=== PATIENT | male | born 1950 | race Caucasian/White ===

== ENCOUNTER → 2017-07-23 | Outpatient (CLI) | payer OTHER, MEDICARE | LOC: BMCIMAGING 15:45 | PROVIDERS: ATTEND Podiatrist Foot & Ankle Surgery | DX: M19.072 Primary osteoarthritis, left ankle and foot (principal) ==

== ENCOUNTER → 2018-01-04 | Outpatient (CLI) | payer OTHER, MEDICARE | LOC: BMCIMAGING 15:14 | PROVIDERS: ATTEND Physician Assistant | DX: Z47.1 Aftercare following joint replacement surgery (principal); Z96.651 Presence of right artificial knee joint ==

== ENCOUNTER 2018-03-21 10:15 | Inpatient (IN) | payer OTHER, MEDICARE ==
--- NOTE | 2018-03-21 06:41 | PDHPUP ---
History & Physical Update H&P update statement: This history and physical update is based on an assessment of the patient which was completed after admission or registration (within 24 hours), but prior to the surgery/procedure. H&P update: no change in patient's condition since H&P completed
--- NOTE | 2018-03-21 06:41 | PDIAF ---
- Diagnosis Diagnosis: failed right tka Code Status: Full Code - Medication Management Discharge Medications: Medications to Continue on Transfer Cholestyramine (with Sugar) [Cholestyramine Packet] 2 gm PO BID 10/21/12 [Last Taken 10/20/12 14:30] Discharge Medications: Refer to the Discharge Home Medication list for PRN reason. - Orders Services needed: Physical Therapy Diet Recommendation: no restrictions on diet Activity/Weight Bearing Restrictions: wbat. rom as khalif. keep dressing intact. oneida hose x 2 weeks. f/u at two weeks, seek attn for increasing pain, redness , swelling discharge - Follow Up Care Current Providers and Referrals: Clemente Pritchard MD [Primary Care Provider] -
[~2018-03-21 10:15] MED LIST: BUPI/epINEPH/KETOROLAC/morphINE IU ONE; CALCIUM CHLORIDE 1 GM/10 ML INJ ONE; ROPIVACAINE 0.2% 80 MG, EPINEPHrine 0.2 MG, KETOROLAC TROMETHAMINE 30 MG, morphINE 10 M... IU ONE; THROMBIN (BOVINE) 5,000 UNIT VIAL TP ONE; TRANEXAMIC ACID 1,000 MG in NS (SYRINGE) 50 ML IV ONE; TRANEXAMIC ACID 3,000 MG/50 ML BAG IRR ONE; ceFAZolin 1 GM/5 ML SYR ONE
[2018-03-21] MEDS ORDERED: FAMOTIDINE 20 MG TAB PO ONE (11:55)
[2018-03-21] MEDS ORDERED: ACETAMINOPHEN 325 MG TAB PO ONE (11:55)
[2018-03-21] MEDS ORDERED: ceFAZolin 2 GM/SWFI 2 GM/20 ML SYR IVP ONE (11:55)
[2018-03-21] MEDS ORDERED: LIDOCAINE 1% 2 ML INJ ID PRN (11:56)
[2018-03-21] MEDS ORDERED: LR 1,000 ML IV ONE (11:56)
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
[2018-03-21] MEDS ORDERED: MIDAZOLAM 2 MG/2 ML VIAL IVP ONE (14:06)
[2018-03-21] MEDS ORDERED: MIDAZOLAM 2 MG/2 ML VIAL ONE (14:08)
[2018-03-21] MEDS ORDERED: fentaNYL 100 MCG/2 ML INJ ONE ×3 (14:09→18:01)
[2018-03-21] MEDS ORDERED: PROPOFOL 200 MG/20 ML VIAL ONE (14:10)
[2018-03-21] MEDS ORDERED: ROPIVACAINE HCL 150 MG/30 ML INJ ONE (14:56)
[2018-03-21] MEDS ORDERED: PHENYLEPHRINE 10 MG/ML SDV ONE (15:00)
[2018-03-21] MEDS ORDERED: clonIDINE 1 MG/10 ML VIAL EP ONE (15:49)
[2018-03-21] MEDS ORDERED: ONDANSETRON 4 MG/2 ML VIAL ONE ×2 (16:51)
[2018-03-21] MEDS ORDERED: HYDROmorphone HCL/NS 0.5 MG/ML SYR IVP PRN (17:05)
[2018-03-21] MEDS ORDERED: ONDANSETRON 4 MG/2 ML VIAL IVP PRN ×2 (17:05→18:33)
[2018-03-21] MEDS ORDERED: fentaNYL 100 MCG/2 ML INJ IVP PRN (17:05)
[2018-03-21] MEDS ORDERED: NALOXONE HCL 0.4 MG/ML INJ IVP PRN (17:05)
--- NOTE | 2018-03-21 17:53 | POSTANESTH ---
Post Anesthetic Evaluation Cardiovascular Status: Normal, Stable Respiratory Status: Normal, Stable Level of Consciousness/Mental Status: Can Participate in Eval Pain Control: Adequate, Prn Tx Ordered Nausea/Vomiting Control: Adequate, Prn Tx Ordered Complications Possibly Related to Anesthesia: None Noted
[2018-03-21] MEDS ORDERED: PROMETHAZINE HCL 25 MG SUPPR PR PRN (18:33)
[2018-03-21] MEDS ORDERED: MAGNESIUM HYDROXIDE 30 ML UDCUP PO PRN (18:33)
[2018-03-21] MEDS ORDERED: POLYETHYLENE GLYCOL 3350 17 GM PKT PO PRN (18:33)
[2018-03-21] MEDS ORDERED: BISACODYL 10 MG SUPP PR PRN (18:33)
[2018-03-21] MEDS ORDERED: CYCLOBENZAPRINE 10 MG TAB PO PRN (18:33)
[2018-03-21] MEDS ORDERED: diphenhydrAMINE 25 MG CAP PO PRN (18:33)
[2018-03-21] MEDS ORDERED: LACTULOSE 20 GM/30 ML UDCUP PO PRN (18:33)
[2018-03-21] MEDS ORDERED: DIAZEPAM 5 MG TAB PO PRN (18:33)
[2018-03-21] MEDS ORDERED: DIPHENOXYLATE/ATROPINE LOMOTIL 1 TAB PO PRN (18:33)
[2018-03-21] MEDS ORDERED: PROMETHAZINE HCL 25 MG/ML INJ IVP PRN (18:33)
[2018-03-21] MEDS ORDERED: ONDANSETRON DISINTEGRATING 4 MG TAB PO PRN (18:33)
[2018-03-21] MEDS ORDERED: METOCLOPRAMIDE 10 MG/2 ML VIAL IVP PRN (18:33)
[2018-03-21] MEDS ORDERED: TEMAZEPAM 15 MG CAP PO PRN (18:33)
[2018-03-21] MEDS ORDERED: traMADol 50 MG TAB PO PRN (18:33)
[2018-03-21] MEDS ORDERED: LR 1,000 ML IV SCH (19:00)
[2018-03-21] MEDS: TRANEXAMIC ACID 650 MG TAB PO SCH (19:33)
[2018-03-21] MEDS: oxyCODONE IR 5 MG TAB PO PRN ×2 (19:39→23:36)
[2018-03-21] MEDS: ceFAZolin 2 GM/SWFI 2 GM/20 ML SYR IVP SCH (21:15)
[2018-03-21] MEDS: FAMOTIDINE 20 MG TAB PO SCH (21:16)
[2018-03-21] MEDS: CHOLESTYRAMINE/SUCROSE 4 GM PKT PO SCH (21:16)
[2018-03-21] MEDS: ENOXAPARIN 30 MG/0.3 ML SYR SC SCH (21:16)
[2018-03-21] MEDS: SENNOSIDES/DOCUSATE SODIUM TAB PO SCH (21:17)
[2018-03-21] MEDS ORDERED: ceFAZolin 2 GM/DEXTROSE 100 ML IV SCH (22:00)
[2018-03-21] MEDS: ACETAMINOPHEN 325 MG TAB PO SCH (23:36)
[2018-03-22] MEDS: TRANEXAMIC ACID 650 MG TAB PO SCH (02:46)
[2018-03-22] MEDS: ACETAMINOPHEN 325 MG TAB PO SCH (04:59)
[2018-03-22] MEDS: ceFAZolin 2 GM/SWFI 2 GM/20 ML SYR IVP SCH (05:00)
--- NOTE | 2018-03-22 07:03 | PDMN ---
Medical Necessity Medical necessity: IP surgery per [facility] cpt 43263 revision R TKA
[2018-03-22] MEDS: CHOLESTYRAMINE/SUCROSE 4 GM PKT PO SCH (07:04)
--- NOTE | 2018-03-22 07:36 | PDIAF ---
- Diagnosis Diagnosis: failed right tka Code Status: Full Code - Medication Management Discharge Medications: Medications to Continue on Transfer Cholestyramine (with Sugar) [Cholestyramine Packet] 2 gm PO BID 10/21/12 [Last Taken 03/20/18 18:30] Enoxaparin [Lovenox] 30 mg SC BID #14 syr 03/22/18 [Last Taken Unknown] oxyCODONE IR [Oxycodone Ir (*)] 5 - 10 mg PO Q3HRS PRN #45 tab 03/22/18 [Last Taken Unknown] Discharge Medications: Refer to the Discharge Home Medication list for PRN reason. - Orders Services needed: Physical Therapy Diet Recommendation: no restrictions on diet Diet Texture: Regular Texture Diet Activity/Weight Bearing Restrictions: wbat. rom as khalif. keep dressing intact. maria luisa hose x 2 weeks. f/u at two weeks, seek attn for increasing pain, redness , swelling discharge Additional Instructions: TOTAL JOINT ARTHROPLASTY DISCHARGE INSTRUCTIONS 1. Your surgeon follows the [facility] protocol for reducing your risk of DVT (blood clots) following surgery. Medication will be ordered to prevent blood clots. A sudden increase in calf pain and/or swelling could indicate a blood clot in your leg. If this occurs, please call your surgeon or his/her legal administrative assistant. An ultrasound of the leg may be necessary to diagnose a blood clot. If you have conditions that make you a higher risk for blood clots, your surgeon may use more aggressive ways to prevent them. Notify your surgeon if you think you are a high risk for blood clots. 2. Wear your white surgical stockings (MARIA LUISA hose) for 2 weeks. This decreases your swelling and may help prevent blood clots. It is ok to remove MARIA LUISA hose at night time to give your legs a break. 3. Swelling and bruising in the surgical leg is common. If you feel that it is excessive, please notify your surgeon. 4. Elevate your surgical leg with the ankle above the hip several times every day. Please keep the leg straight when you elevate by putting pillows under your foot. Do not put pillows under your knee. This will make being able to fully straighten more difficult. This is uncomfortable, but try to do it as much as possible. 5. For total knee replacements use compressive wrap on your knee for 3-5 days after surgery, then you can discontinue it. 6. Use a walker or crutches for 1-2 weeks. Progress your weight-bearing as tolerated. You may start to use a cane when you feel stable and safe. 7. You will receive physical therapy instructions in the hospital. Continue those exercises at home. There are additional exercises in the total joint booklet you were given before surgery. Outpatient physical therapy will begin 7- 10 days after surgery. Please schedule this in advance. 8. Use ice on your knee at least 3-5 times every day for 30 minutes. This helps reduce pain and swelling. Also use it at night before falling asleep. 9. Leave your surgical dressing in place for 2 weeks. Your dressing is water resistant, but not waterproof. Cover it with Saran Wrap or [id number]-[id number] before showering. You may shower as soon as you feel safe entering a shower. If you notice bleeding from your incision 2 or 3 days after surgery, please notify your surgeon. 10. Due to narcotics, decreased activity and altered diet, most patients experience constipation after surgery. Use [id number] stool softeners while you are on narcotics. 11. You may drive a car when you are comfortable bearing weight, have good muscular control of your leg and are off narcotics. This usually occurs 2-4 weeks after surgery, depending on which leg was operated on. 12. If there are questions not addressed here, please refer the [facility] book given for more information. If you still have questions, please contact your surgeon s office. 13. If you have a life-threatening emergency, please call 911 and go to the emergency room immediately. For non-life threatening emergencies, please call your physicians office for advice before going to the emergency room. - Follow Up Care Current Providers and Referrals: Jorge Mancera MD [Medical Doctor] - Clemente Pritchard MD [Primary Care Provider] -
--- NOTE | 2018-03-22 07:37 | SOAPPROG ---
SOAP Progress Note Assessment/Plan: Assessment: s/p revision right tka Plan:stable d/c home after cleared by pt dvt precautions f/u at two weeks 03/22/18 07:36 Subjective: doing well no co min pain no cp or sob khalif po Objective: Vital Signs Temp Pulse Resp BP Pulse Ox 36.8 C 76 17 111/75 95 03/22/18 03:06 03/22/18 03:06 03/22/18 03:06 03/22/18 03:06 03/22/18 03:06 Laboratory Results 03/22/18 04:48 03/21/18 03/22/18 03/23/18 05:59 05:59 05:59 Intake Total 2880 Output Total 325 Balance 2555 dressing intact intact pf,df,ehl toes warm and pink neg homans juwan xrays stable alignment, slight lateral overhand of tibial plate ICD10 Worksheet Patient Problems: Problems Problem Status Onset Failure of total knee arthroplasty Acute - ICD10 Problem Qualifiers (1) Failure of total knee arthroplasty
[2018-03-22 07:46] VITALS: BP 115/77
[2018-03-22] MEDS: SENNOSIDES/DOCUSATE SODIUM TAB PO SCH (09:19)
[2018-03-22] MEDS: ENOXAPARIN 30 MG/0.3 ML SYR SC SCH (09:19)
[2018-03-22] MEDS: FAMOTIDINE 20 MG TAB PO SCH (09:19)
[2018-03-22] MEDS: oxyCODONE IR 5 MG TAB PO PRN (09:22)
--- NOTE | 2018-03-22 12:02 | ASMTCMCOM ---
CM Note CM Note Notes: Pt medically stable for d/c with [facility]. Orders sent in [employer]. Pt address/phone verified. Date Signed: 03/22/2018 12:01 PM Electronically Signed By:JAD Power
--- NOTE | 2018-03-22 16:12 | ASDISCHSUM ---
Discharge Information Plan Status:Home with Home Health Medically Cleared to Leave: Discharge Date:03/22/2018 11:39 AM CM D/C Disposition:Home Health Service ADT D/C Disposition:Home Health Service Projected Discharge Date:03/22/2018 11:00 AM Transportation at D/C: Discharge Delay Reason: Follow-Up Date:03/22/2018 11:00 AM Discharge Slot: Final Diagnosis: Placement Information Referral Type:*Home Health Care Services Referral ID:[id number] Provider Name:[facility] [place] Address 1:[address] [place] [address] Address 2: City:[place] Selection Factors: State:[place] Patient Contact Information Contact Name:BHAVIN Relationship: Address:[address] [place] [address] City:[place] Alternate Phone: State/Zip Code:[place] [address] Email: Financial Information Financial Class:Medicare Primary Plan Desc:MEDICARE INPATIENT Primary Plan Number:[id number] Secondary Plan Desc:AARP/MDR SUPPLEMENT Secondary Plan Number:[id number] Assessment Information [facility] CM Progress Note CM Note CM Note Notes: Pt medically stable for d/c with [facility]. Orders sent in [facility]. Pt address/phone verified. Date Signed: 03/22/2018 12:01 PM Electronically Signed By:JAD Power Intervention Information
--- NOTE | 2018-03-24 07:48 | GDS ---
[f rep st] DISCHARGE SUMMARY ADMISSION DIAGNOSIS: Right failed total knee arthroplasty. POSTOPERATIVE DIAGNOSIS: Right failed total knee arthroplasty. PROCEDURE: Right total knee arthroplasty revision of both components. HISTORY OF PRESENT ILLNESS: The patient is a 67-year-old gentleman who is 5 years out from a previou s total knee replacement. This has failed and is mechanically loose. He has persistent interference of his activities of daily living and pain. I have recommended revision of his components. He unde rstood the risks, benefits, alternatives, and wished to proceed. Written consent was signed and plac ed in patient's chart. HOSPITAL COURSE: The patient was admitted to the hospital floor after uncomplicated revision arthrop lasty to his right knee. He tolerated the procedure well. Postoperatively had no complications. At the time of discharge, he is tolerating an oral diet. Pain was well controlled on oral medicines. He is voiding without difficulty. Dressing is clean, dry, and intact. He has negative Homans. DISCHARGE ACTIVITIES: Weightbearing as tolerated. Range of motion as tolerated. Daily dressing sandra nges. No soaking or immersion. May shower without the bandage. DISCHARGE MEDICATIONS: Lovenox 30 mg subcu twice daily for 2 weeks, given a previous history of bloo d clot, then aspirin 325 mg p.o. daily for 6 weeks, oxycodone 5 mg 1-2 every 6 hours p.r.n. pain. FOLLOWUP: For increasing pain, swelling, drainage, or other focal complaint. /[id number]/MODL
--- NOTE | 2018-03-24 07:58 | GOP ---
[f rep st] OPERATIVE REPORT DATE OF OPERATION: 03/21/2018 SURGEON: Jorge Mancera MD PSYCH SALES SPECIALIST: Andrés Valencia, PURSE MAKER, [facility], who was a medical necessity for the entirety of the case. PREOPERATIVE DIAGNOSIS: Right failed total knee replacement. POSTOPERATIVE DIAGNOSIS: Right failed total knee replacement. PROCEDURE PERFORMED: Right total knee arthroplasty revision of both components. FINDINGS: SPECIMENS: To Pathology, as above. ESTIMATED BLOOD LOSS: 200 cc. INDICATIONS: Kirk is a 67-year-old gentleman who is approximately 5 years out from a primary right total knee replacement. He has developed progressive pain and disability related to his previous kn ee replacement. Clinical and radiograph features are consistent with slight varus positioning and lo osening of the components. This was confirmed on bone scan. He was evaluated for possible infection which was negative. I have therefore recommended operative intervention for revision of his right k nee and exchange of both components. He understood the risks, benefits, alternatives, and wished to proceed. Written consent was signed and placed in patient's chart. DESCRIPTION OF PROCEDURE: The patient was identified in the preanesthesia area. The right knee zoila rly demarcated as the operative site with indelible marker. He was given 2 g of Ancef intravenously en route to the operative suite. In the OR, spinal anesthetic followed by general endotracheal anest hesia was administered. Attention was turned to the right knee which was sterilely prepped and drape d in the usual fashion. Appropriate time-out procedure was carried out. The limb was then exsanguin ated with an Esmarch bandage. Tourniquet inflated to 275 mmHg. The previous incision was opened in its entirety, carried sharply through the skin and subcutaneous t issue. The previous medial parapatellar arthrotomy was opened. All remaining suture fragments were withdrawn and subperiosteal elevation was carried out to the mid coronal plane and retractors placed. The patella was well fixed without gross erosion. The tibial and femoral components demonstrated n o gross abnormality. The knee was brought to a flexed position. There was minimal fluid about the k nee. The femoral and tibial components were then gently elevated from the underlying bone with use o f osteotomes and instrumentation, and were loosened without difficulty. The femoral component and ti bial component both demonstrated loosening. These were removed. The remaining cement was excised. The knee was copiously irrigated as was the soft tissue with a pulsatile lavage solution. Intraopera tive path specimens were sent for evaluation. There was evidence of chronic inflammation but no acut e inflammation or infection and no organisms were seen. Decision was made to proceed with revision a rthroplasty. Attention was first turned to the tibia, which was delivered with the use of retractors and intramedu llary guide louisa was then placed. Serial reaming was carried out to a size 12 stem. The proximal cut ting block was then affixed and the proximal cut made using the proximal tibial guide. A cone reamer was placed over the central reamer and ultimately a size B cone selected. A trial assembly with a s tem size 5 tibial base plate, and a size B cone was then placed. This was appropriately positioned. This was then brought into a flexed position and attention turned to the femur. In a similar fashio n, the distal surface was opened and an intramedullary guide louisa was affixed. Serial broaching was c arried out to a size 12 broach. Appropriate sizing revealed a size 4 femoral component to be appropr iate in the anterior, posterior, medial and lateral plane. The cutting blocks were then affixed sequ entially and the anterior, posterior, and chamfer cuts were then made. A trial assembly with a size 4 femur with 2 distal femoral augments size 10 mm were placed. The knee was brought to full extensio n. A size 5 x 19 mm thick polyethylene spacer was ultimately selected. This allowed neutral limb al ignment and stability to varus and valgus stress throughout the flexion-extension arc. The trial com ponents were all withdrawn. The surfaces were thoroughly cleansed and dried with a pulsatile lavage solution, and the tibial and femoral components were then assembled on the back table using standard cementation technique. The tibial and femoral components were then cemented. All marginal cement wa s withdrawn. A size 5 x 19 mm spacer was then placed, impacted, confirmed to be fully seated. The k nee was taken through full range of motion, was felt to be stable and appropriate as above. The woun d was copiously irrigated. The knee was visualized to track centrally within the trochlear groove. The medial parapatellar arthrotomy was closed after injection of the joint tissues and capsule with a joint cocktail of ropivacaine, morphine, Toradol, and epinephrine. The medial parapatellar arthroto my closed using #1 Ethibond. The deep tissue injected with platelet-rich plasma. Subcutaneous tissu e closed using a 0 Quill and milla. A sterile dressing was applied, followed by a Cryo/Cuff and th e patient was awakened, extubated, taken to recovery room in good stable condition. TOTAL TOURNIQUET TIME: 2 hours. COMPLICATIONS: None. IMPLANTS: The triathlon total stabilizer femoral component size 4, tibial component size 5, two 10 m m femoral distal augments, a cemented stem size 75 mm with a 50 mm component and 25 mm extension, siz e B cone and a femoral stem 12 x 50 mm in length. DISPOSITION: To the recovery room, then the floor. He will be weightbearing as tolerated, range of motion as tolerated. /[id number]/MODL
== END 2018-03-22 11:39 | disposition home health service (06) | DRG 468 ==
LOC: F3N 11:37
PROVIDERS: ADMIT Orthopaedic Surgery; ATTEND Orthopaedic Surgery
PROC: 0SPC0JZ Removal of Synthetic Substitute from Right Knee Joint, Open Approach (ICD-10-PCS; principal; 2018-03-21 13:30)
PROC: 6A550Z2 Pheresis of Platelets, Single (ICD-10-PCS; principal; 2018-03-21 13:30)
PROC: 0SRC0J9 Replacement of Right Knee Joint with Synthetic Substitute, Cemented, Open Approach (ICD-10-PCS; principal; 2018-03-21 13:30)
PROC: 3E0U3GC Introduction of Other Therapeutic Substance into Joints, Percutaneous Approach (ICD-10-PCS; principal; 2018-03-21 13:30)
DX: T84.032A Mechanical loosening of internal right knee prosthetic joint, initial encounter (principal); E78.5 Hyperlipidemia, unspecified; I10 Essential (primary) hypertension; M54.5 Low back pain; Z87.891 Personal history of nicotine dependence
CPT/HCPCS: 97116-GP; 97161-GP; 97165-GO; C1713; G8978-GP-CJ; G8979-GP-CI; G8987-GO-CI; G8988-GO-CI; G8989-GO-CI; J0171; J0690; J0735; J1650; J1885; J2250; J2270; J2370; J2405; J2704; J2795; J3010

== ENCOUNTER → 2018-04-28 | Outpatient (CLI) | payer OTHER, MEDICARE | LOC: BMCIMAGING 08:15 | PROVIDERS: ATTEND Orthopaedic Surgery | DX: Z09 Encounter for follow-up examination after completed treatment for conditions other than malignant neoplasm (principal); Z96.651 Presence of right artificial knee joint ==

== ENCOUNTER → 2018-06-22 | Outpatient (CLI) | payer OTHER, MEDICARE | LOC: BMCIMAGING 08:05 | PROVIDERS: ATTEND Orthopaedic Surgery | DX: Z47.1 Aftercare following joint replacement surgery (principal); Z96.651 Presence of right artificial knee joint ==

== ENCOUNTER → 2018-08-15 | Outpatient (CLI) | payer OTHER, MEDICARE ==
[~2018-08-15] MED LIST changes: -BUPI/epINEPH/KETOROLAC/morphINE IU ONE; -CALCIUM CHLORIDE 1 GM/10 ML INJ ONE; +GADOBUTROL 10 ML VIAL IVP ONE; -ROPIVACAINE 0.2% 80 MG, EPINEPHrine 0.2 MG, KETOROLAC TROMETHAMINE 30 MG, morphINE 10 M... IU ONE; -THROMBIN (BOVINE) 5,000 UNIT VIAL TP ONE; -TRANEXAMIC ACID 1,000 MG in NS (SYRINGE) 50 ML IV ONE; -TRANEXAMIC ACID 3,000 MG/50 ML BAG IRR ONE; -ceFAZolin 1 GM/5 ML SYR ONE
== END ==
LOC: FIMAGING 06:21
PROVIDERS: ATTEND Urology
DX: N40.0 Benign prostatic hyperplasia without lower urinary tract symptoms (principal); N40.2 Nodular prostate without lower urinary tract symptoms
CPT/HCPCS: 72197; A9585

== ENCOUNTER → 2018-09-21 | Outpatient (CLI) | payer OTHER, MEDICARE | LOC: BMCIMAGING 08:25 | PROVIDERS: ATTEND Orthopaedic Surgery | DX: Z47.1 Aftercare following joint replacement surgery (principal); Z96.651 Presence of right artificial knee joint ==

== ENCOUNTER → 2018-12-16 | Outpatient (CLI) | payer OTHER, MEDICARE | LOC: FIMAGING 13:15 | PROVIDERS: ATTEND Otolaryngology | DX: H90.42 Sensorineural hearing loss, unilateral, left ear, with unrestricted hearing on the contralateral side (principal); R90.82 White matter disease, unspecified | CPT/HCPCS: 70553; A9585; 82565-PO ==

== ENCOUNTER → 2019-03-22 | Outpatient (CLI) | payer OTHER, MEDICARE | DX: Z47.1 Aftercare following joint replacement surgery (principal); Z96.651 Presence of right artificial knee joint ==